=== PATIENT | male | born 1955 | race Caucasian/White ===

== ENCOUNTER 2021-08-11 06:54 | Day surgery (SDC) | payer MEDICARE ==
[~2021-08-11] VITALS: Ht 185.4 cm; Wt 79.3 kg
[~2021-08-11 06:54] MED LIST: GINKGO60 MG PO; HYALURONIC ACID PO; MSM500 MG PO; MULVITA PO; UBID10 PO
--- NOTE | 2021-08-11 07:49 | NUR ---
[facility] ADMISSION STARTED. Ambulatory in Day Surgery. History, Chart, Medications and Allergies reviewed before start of procedure. Lungs clear T/O to Auscultation. Patient States Post-Procedure ride home has been arranged.
--- NOTE | 2021-08-11 10:20 | NUR ---
RECIEVED REPORT FROM YAMILET MARROQUIN RN. PT ALERT AND ORIENTED UPON ARRIVAL TO STEPDOWN UNIT. REQUESTING PO FLUID AND FOOD. ABLE TO REPOSITION SELF IN BED, BUT MAKES MINIMAL MOVEMENT DUE TO "DISCOMFORT" IN ABDOMEN. THE INCISION SITE IS COVERED WITH GAUZE AND A CLEAR WINDOW TAPE. THERE APPEARS TO BE NO REDNESS, SWOLLEN OR INFLAMED TISSUE, OR FLUID LEAKING FROM THE SITE. PT STATES 5/10 "DISCOMFORT" PAIN AND WOULD LIKE TO HAVE A SNACK AND REST.
--- NOTE | 2021-08-11 10:33 | NUR ---
PT TOLERATING PO FLUID AND FOOD. PT SITTING UP IN BED, TALKING.
--- NOTE | 2021-08-11 10:51 | NUR ---
PT SITTING UP AND JOKING, REQUESTING TO GO HOME. RIDE HOME CONTACTED.
--- NOTE | 2021-08-11 10:59 | NUR ---
Patient up to Ambulate independently. Gait steady. Discharge instructions reviewed with patient. Patient verbalizes understanding. Copy given to patient to take home. Dressing to procedure site clean, dry, intact with no visible drainage, swelling, erythema or bruising noted. Patient States Post-Procedure ride home has been arranged. Discharged via wheelchair to private car for ride home. ALL BELONGINGS RETURNED TO PATIENT.
--- NOTE | 2021-08-13 13:03 | NUR ---
08/13/21 1303 Anabel Rodríguez VERIFICATIONS: EDIT CHART.
== END 2021-08-11 23:06 | disposition home or self-care (01) ==
LOC: ORSCMMR 06:54 → ORD 08:30 → ORSCMMR 23:06
PROVIDERS: Surgery
PROC: 0WQF0ZZ Repair Abdominal Wall, Open Approach (ICD-10-PCS; principal; 2021-08-11 08:30)
DX: K42.9 Umbilical hernia without obstruction or gangrene (principal)
CPT/HCPCS: A9270; J0171; J0690; J1100; J1885; J2250; J2405; J2704; J3010; J7120